=== PATIENT | female | born 1975 | race Caucasian/White ===

== ENCOUNTER 2020-04-26 19:03 | Emergency (ER) | payer OTHER ==
[2020-04-26] MEDS ORDERED: cefTRIAXone 1 GM, Lidocaine 1% 2.1 ML IM ONE ×2 (19:18)
--- NOTE | 2020-04-26 19:54 | EDM.PDOC ---
ED HPI GENERAL MEDICAL PROBLEM - General Chief Complaint: ENT Problem Stated Complaint: WHITE BUMPS ON RIGHT RIDE, SWOLLEN THROAT, FEVER Time Seen by Provider: 04/26/20 19:20 Source of Information: Reports: Patient, RN Notes Reviewed History Limitations: Reports: No Limitations - History of Present Illness INITIAL COMMENTS - FREE TEXT/NARRATIVE: ED with c/o sore throat, swollen lymph nodes x 2 days, pain radiates to ear, fever t max 103, lowest 99.7 has been using tylenol. Decreased appetite, still tolerating liquids. COVID + 03/01. 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: Acetaminophen Throat Pain Score (Numeric/FACES): 10 - Related Data Allergies Allergy/AdvReac Type Severity Reaction Status Date / Time No Known Allergies Allergy Verified 04/26/20 19:27 Home Meds: Home Meds FLUoxetine HCl [Prozac] 20 mg PO DAILY 04/26/20 [History] Past Medical History Psychiatric History: Reports: Anxiety, Depression Social & Family History - Family History Family Medical History: No Pertinent Family History - Tobacco Use Tobacco Use Status *Q: Current Every Day Tobacco User Years of Tobacco use: 27 Packs/Tins Daily: 0.5 Second Hand Smoke Exposure: Yes - Caffeine Use Caffeine Use: Reports: Soda - Recreational Drug Use Recreational Drug Use: No ED ROS ENT - Review of Systems Review Of Systems: Comprehensive ROS is negative, except as noted in HPI. ED EXAM, ENT - Physical Exam Exam: See Below Exam Limited By: No Limitations General Appearance: Alert, Mild Distress Eye Exam: Bilateral Eye: EOMI, PERRL Ears: Normal External Exam Nose: Normal Inspection Mouth/Throat: Pharyngeal Erythema, Tonsillar Erythema, Tonsillar Exudates, Tonsillar Swelling. No: Uvular Deviation, Uvular Edema Head: Atraumatic, Normocephalic Neck: Lymphadenopathy (L), Lymphadenopathy (R) (greater than left) Respiratory/Chest: No Respiratory Distress, Lungs Clear, Normal Breath Sounds Cardiovascular: Normal Peripheral Pulses, Regular Rate, Rhythm Extremities: Normal Inspection Neurological: Alert, Oriented Psychiatric: Normal Affect, Normal Mood Skin: Warm, Dry, Intact, Normal Color Course - Vital Signs Last Recorded V/S: Last Vital Signs Temp 96.7 F L 04/26/20 19:16 Pulse 102 H 04/26/20 19:16 Resp 16 04/26/20 19:16 BP 114/83 04/26/20 19:16 Pulse Ox 99 04/26/20 19:16 - Orders/Labs/Meds Orders: Active Orders 24 hr Category Date Time Status CULTURE STREP A CONFIRMATION [RM] Stat Lab 04/26/20 19:21 Results INFLUENZA A+B AG SCREEN [RM] Stat Lab 04/26/20 19:21 Received STREP SCRN A RAPID W CULT CONF [RM] Stat Lab 04/26/20 19:09 Ordered Isolation [COMM] Routine Oth 04/26/20 19:09 Active Meds: Medications Discontinued Medications Generic Name Dose Route Start Last Admin Trade Name John Paul PRN Reason Stop Dose Admin Ceftriaxone Sodium 1 gm/ 0 gm 04/26/20 19:18 04/26/20 19:34 Lidocaine HCl 2.1 ml IM 04/26/20 19:19 2.3 inj ONETIME ONE Administration Departure - Departure Time of Disposition: 19:51 Disposition: Home, Self-Care 01 Condition: Good Clinical Impression: Tonsillitis - Discharge Information *PRESCRIPTION DRUG MONITORING PROGRAM REVIEWED*: No Instructions: Upper Respiratory Infection, Adult, [id number] Additional Instructions: increase fluids alternate tylenol 650mg and ibuprofen 600mg every 4 hours as needed for fever/ discomfort listerine 1/2 strength or salt water gargle 3 times daily amoxicillin 875mg one twice daily for 10 days follow up if not improving, symptoms worsen with increased fever, unable to tolerate liquids or difficulty breathing Sepsis Event Note (ED) - Evaluation Sepsis Screening Result: Possible Sepsis Risk - Focused Exam Vital Signs: Vital Signs Temp Pulse Resp BP Pulse Ox 04/26/20 19:16 96.7 F L 102 H 16 114/83 99 - My Orders Last 24 Hours: My Active Orders 04/26/20 19:09 STREP SCRN A RAPID W CULT CONF [RM] Stat Isolation [COMM] Routine 04/26/20 19:21 CULTURE STREP A CONFIRMATION [RM] Stat INFLUENZA A+B AG SCREEN [RM] Stat - Assessment/Plan Last 24 Hours: My Active Orders 04/26/20 19:09 STREP SCRN A RAPID W CULT CONF [RM] Stat Isolation [COMM] Routine 04/26/20 19:21 CULTURE STREP A CONFIRMATION [RM] Stat INFLUENZA A+B AG SCREEN [RM] Stat
== END 2020-04-26 20:00 | disposition home or self-care (01) ==
LOC: DL.ED 19:03
DX: J03.90 Acute tonsillitis, unspecified (principal); F41.9 Anxiety disorder, unspecified; F32.9 Major depressive disorder, single episode, unspecified; F17.210 Nicotine dependence, cigarettes, uncomplicated; Z86.19 Personal history of other infectious and parasitic diseases; Z79.899 Other long term (current) drug therapy
CPT/HCPCS: 87081; 87430; 87804; 96372; 99283; J0696; J2001